=== PATIENT | male | born 1985 | race Caucasian/White ===

== ENCOUNTER 2020-04-27 20:02 | Emergency (ER) | payer OTHER ==
[~2020-04-27] VITALS: Ht 185.4 cm; Wt 136.4 kg
[2020-04-27 20:05] VITALS: BP 151/95; TEMP 97
[2020-04-27] MEDS ORDERED: VALIUM 5MG T5 MG/TAB PO (20:43)
[2020-04-27] MEDS ORDERED: NORCO 325 MG-51 TAB PO (20:43)
[2020-04-27] MEDS ORDERED: PREDNISONE20 MG PO (21:27)
[2020-04-27 21:59] VITALS: PULSE 98
== END 2020-04-27 22:00 | disposition home or self-care (01) ==
LOC: COL.ER 20:02
DX: M54.5 Low back pain (principal); G89.29 Other chronic pain; M54.16 Radiculopathy, lumbar region
CPT/HCPCS: J2930; J3010; J3360